=== PATIENT | male | born 1945 | race Caucasian/White ===

== ENCOUNTER 2018-04-24 10:09 | Outpatient (CLI) | payer MEDICARE ==
--- NOTE | 2018-04-24 11:40 | RAD ---
THREE VIEWS THORACIC SPINE: History: Pain. FINDINGS: AP, lateral, and swimmer's views obtained. There is extensive anterior bridging osteophytes throughou t the thoracic spine. No evidence of acute fractures or bony lesions. No evidence of anterolisthesis or retrolisthesis seen. No evidence of compression fractures seen. IMPRESSION: Extensive anterior bridging osteophytes in the thoracic spine without evidence of compression fractur es seen in the thoracic spine. POS: [facility]
== END 2018-04-24 10:10 | disposition home or self-care (01) ==
LOC: BICRAD 10:09
PROVIDERS: ATTEND Family Medicine
DX: M54.6 Pain in thoracic spine (principal); M25.78 Osteophyte, vertebrae
CPT/HCPCS: 72072

== ENCOUNTER 2018-06-05 14:42 | Outpatient (CLI) | payer MEDICARE ==
[~2018-06-05 14:42] MED LIST: Iopamidol 370 76% 100 ML VIAL ONE
--- NOTE | 2018-06-05 18:12 | CT ---
CT ABDOMEN AND PELVIS WITH CONTRAST: HISTORY: R10.9, abdominal pain, unspecified. COMPARISON: None. FINDINGS: The lung bases are clear. No pericardial effusion. The liver, spleen, pancreas, and adrenal glands are unremarkable. The aortoiliac contour is nonaneur ysmal. Mild diverticular disease of the sigmoid colon with current inflammation. The appendix is visualized and is normal. No dilated loops of large or small bowel. No retroperitoneal adenopathy. The gallbladder is unremarkable. No hydronephrosis. No abnormal renal enhancing mass. A few likely reactive right external iliac lymph nodes are present. Decompressed urinary bladder wit h wall thickening, likely prior TURP changes. Advanced degenerative facet arthrosis, lower lumbar spine. Advanced degenerative disk disease at L5- S1. IMPRESSION: 1. No acute inflammatory process in the abdomen or pelvis. 2. Mild diverticular disease of the sigmoid colon without active current inflammation. POS: [facility]
== END 2018-06-05 14:43 | disposition home or self-care (01) ==
LOC: SCSCT 14:42
PROVIDERS: ATTEND Physician Assistant
DX: R10.9 Unspecified abdominal pain (principal); K57.30 Diverticulosis of large intestine without perforation or abscess without bleeding
CPT/HCPCS: 74177

== ENCOUNTER 2018-06-22 15:49 | Outpatient (CLI) | payer MEDICARE ==
--- NOTE | 2018-06-22 17:58 | MRI ---
MRI OF THE LUMBAR SPINE 06/22/18 COMPARISON: None. HISTORY: Facet arthritis, degenerative lumbar spine disease. TECHNIQUE: Multiplanar, multisequence MR imaging lumbar spine provided without contrast. FINDINGS: The sagittal STIR imaging demonstrates no focal area of osseous marrow edema. On the basis of five lumbar type vertebral bodies, the conus medullaris terminates at the T12 level. T12-L1: There is mild bilateral facet hypertrophy. Intervertebral disc height and signal intensity is within normal limits with no central canal or neural foraminal stenosis. L1-2: Mild bilateral facet hypertrophy and hypertrophy of the ligamentum flavum. Intervertebral disc height and signal intensity appears within normal limits with no significant central canal or neural foraminal stenosis. L2-3: Mild disc space narrowing. Left lateral osteophyte formation. Mild bilateral facet hypertrophy. No significant central canal or neural foraminal stenosis. L3-4: Disc space narrowing and disc desiccation. Mild disc bulge with tiny right paracentral disc pro trusion causing a mild degree of central canal stenosis. Bilateral facet hypertrophy and hypertrophy of the ligamentum flavum, left greater than right. No significant neural foraminal stenosis seen on e ither side. L4-5: Disc space narrowing, disc desiccation and vacuum disc formation. There is anterolisthesis miguel uring 5 mm at L4-5. There is bilateral facet hypertrophy and hypertrophy of the ligamentum flavum, le ft greater than right. There is fluid within the facet joint on the left. There is mild central canal stenosis. Moderate left neural foraminal stenosis and mild right neural foraminal stenosis. L5-S1: Disc space narrowing, degenerative end plate change and disc desiccation noted with anterior o steophyte formation and mild disc bulge. No significant central canal stenosis. Bilateral facet hyper trophy. No significant neural foraminal stenosis seen on either side. The imaged retroperitoneal structures appear grossly unremarkable. IMPRESSION: Multilevel degenerative change noted within the lumbar spine, most prominent at the L4-5 level as det inna above. The degree of facet hypertrophy may signify instability and thus flexion and extension r adiographs suggested. POS: [facility]
== END 2018-06-22 15:50 | disposition home or self-care (01) ==
LOC: TBSIIMAG 15:49
PROVIDERS: ATTEND Physician Assistant
DX: M47.816 Spondylosis without myelopathy or radiculopathy, lumbar region (principal)
CPT/HCPCS: 72148; 82274

== ENCOUNTER 2018-06-27 12:05 | Outpatient (CLI) | payer MEDICARE ==
--- NOTE | 2018-06-27 13:53 | RAD ---
LUMBAR SPINE SIX VIEWS: Date: 06-27-18 History: Degenerative facet arthritis. FINDINGS: Five lumbar type vertebral bodies are present. There is facet hypertrophy bilaterally at L3-4, L4-5, and L5-S1. There is disc space narrowing and anterior osteophyte formation at L3-4 and L5-S1. The kavita tral lateral imaging demonstrates anterolisthesis of L4 on L5 measuring approximately 8 mm. With exte nsion this anterolisthesis measures approximately 8 mm and on flexion the anterolisthesis is decrease d at L4-5, difficult to measure secondary to location, estimated in the 3-4 mm range. No acute osseou s abnormality is noted. Oblique imaging demonstrates no evidence for a pars defect on either side at any level. IMPRESSION: Multilevel degenerative facet hypertrophic change within the lower lumbar spine with anterolisthesis of L4 on L5 as above. POS: [facility]
== END 2018-06-27 12:06 | disposition home or self-care (01) ==
LOC: BICRAD 12:05
PROVIDERS: ATTEND Physician Assistant
DX: M47.816 Spondylosis without myelopathy or radiculopathy, lumbar region (principal); M43.16 Spondylolisthesis, lumbar region
CPT/HCPCS: 72100

== ENCOUNTER 2018-12-20 15:51 | Outpatient (CLI) | payer MEDICARE ==
--- NOTE | 2018-12-20 16:37 | RAD ---
TWO VIEW CHEST: 12/20/18 INDICATIONS: Night sweats and shortness of breath. No comparison available. Lungs appear clear of confluent infiltrate. No evidence of vascular congestion or edema. Heart size i s normal. Mediastinum unremarkable. Degenerative spurring from the thoracic vertebrae. IMPRESSION: No acute lung process. POS: [facility]
== END 2018-12-20 15:52 | disposition home or self-care (01) ==
LOC: BICRAD 15:51
PROVIDERS: ATTEND Family Medicine
DX: R06.9 Unspecified abnormalities of breathing (principal); R61 Generalized hyperhidrosis
CPT/HCPCS: 71046

== ENCOUNTER 2019-01-15 12:56 | Outpatient (CLI) | payer MEDICARE ==
[2019-01-15] MEDS ORDERED: ISOVUE-370 76%-LOCM 1 ML ONE (16:19)
--- NOTE | 2019-01-15 17:23 | CT ---
CT NECK WITH CONTRAST: INDICATIONS: Dysphagia. FINDINGS: The imaged salivary glands are unremarkable. There are several bilateral thyroid gland hypodensities . Mild prominence of the lingual tonsils is present, with slight effacement of the vallecula. The p iriform sinuses are patent. No evidence of mass at the level of the glottis. The nasopharynx is antoni e from mass effect. No discrete oral cavity mass is visualized. There is scattered vascular calcifi cation. The imaged upper lung zones are clear. Scattered osseous degenerative change is present. IMPRESSION: 1. Mild prominence of the lingual tonsil with associated mild effacement of the vallecula. This may be on the basis of tonsillar hypertrophy. Recommend correlation with direct visualization. 2. Multiple small thyroid gland hypodensities. The findings were demonstrated on the thyroid ultras ound from 12/29/2016. Please reference separate thyroid ultrasound reports for additional details. POS: [facility]
== END 2019-01-15 12:57 | disposition home or self-care (01) ==
LOC: BICCT 12:56
PROVIDERS: ATTEND Otolaryngology Plastic Surgery within the Head & Neck
DX: I65.29 Occlusion and stenosis of unspecified carotid artery (principal); J35.8 Other chronic diseases of tonsils and adenoids; R93.89 Abnormal findings on diagnostic imaging of other specified body structures; E87.5 Hyperkalemia; D69.6 Thrombocytopenia, unspecified
CPT/HCPCS: 36415; 70491; 80048; 85007; 85027; 85060; Q9966

== ENCOUNTER 2019-09-03 21:15 | Emergency (ER) | payer MEDICARE ==
[2019-09-03 21:52] LABS: #Eosinphils 0.1 thou/uL (0.0-0.7); #Lymphocytes 1.3 thou/uL (1.20-3.40); #Monocytes 0.5 thou/uL (0.11-0.59); #Neutrophils 4.4 thou/uL (1.40-6.50); %Basophils 0.7 % (0.0-1.0); %Eosinophils 1.5 % (0.0-10.0); %Lymphocytes 20.8 % (21.0-51.0); %Monocytes 7.3 % (0.0-10.0); %Neutrophils 69.7 % (42.0-75.0); Hemoglobin 15.1 g/dL (14.0-18.0); Mean Corpuscular HGB CONC 33.7 g/dL (32.0-36.0); Mean Corpuscular Hemoglobin 30.5 pg (27.0-31.0); Mean Corpuscular Volume 90.5 fL (78.0-98.0); Mean Platelet Volume 8.5 fL (7.4-10.4); Platelet Count 153 thou/uL (130-400); RBC Distribution Width 11.8 % (11.5-14.5); Red Blood Cell (RBC) Count 4.95 mill/uL (4.70-6.10); White Blood Cell (WBC) Count 6.3 thou/uL (4.8-10.8)
[2019-09-03 22:10] LABS: ALT (SGPT) 29 U/L (8-55); AST (SGOT) 34 U/L (5-34); Albumin 4.2 g/dL (3.4-4.8); Alkaline Phosphatase 85 U/L (40-110); Anion Gap 7 mmol/L (10-20); BUN (Urea Nitrogen) 16 mg/dL (8.4-25.7); Bilirubin, Total 0.8 mg/dL (0.2-1.2); Calc. Creatinine Clearance 0 mL/min (70-130); Calcium 9.4 mg/dL (7.8-10.44); Carbon Dioxide 33 mmol/L (23-31); Chloride 101 mmol/L (98-107); Estimated GFR-MDRD 69; Globulin 2.6 g/dL (2.4-3.5); Glucose 113 mg/dL (83-110); Potassium 4.3 mmol/L (3.5-5.1); Protein, Total 6.8 g/dL (5.8-8.1); Sodium 137 mmol/L (136-145)
[2019-09-03 22:10] LABS: Bilirubin Negative (Negative); Blood, Urine Negative (Negative); Clarity Clear (Clear); Glucose, Urine (Dipstick) Normal (Negative); Leukocyte Negative Leu/uL (Negative); Nitrite Negative (Negative); Protein, Urine (Dipstick) Negative (Neg-Trace); Urobilinogen Normal mg/dL (Less than 2)
[2019-09-04] MEDS ORDERED: Ketorolac Tromethamine 30 MG/ML VIAL ONE (01:44)
--- NOTE | 2019-09-04 07:55 | CT ---
PRELIMINARY REPORT/[facility]/EMERGENCY AFTER HOURS PROCEDURE: History: Right groin pain radiating to testicle. CT abdomen pelvis with 100 cc Isovue-370 IV contrast. Comparison: None. Findings: The lung bases are clear. The gallbladder is mildly contracted. The liver, pancreas, spleen and adrenal glands are unremarkabl e. The kidneys are normal in appearance. No radiopaque renal or ureteral stones. No hydronephrosis. The stomach and small bowel are unremarkable. No small bowel obstruction. The appendix is normal. Large amount of colonic stool throughout. Scattered distal colonic diverticula. No free fluid or fr ee air. The bladder is incompletely distended. Trace right scrotal hydrocele. Atherosclerotic aorta without dissection or aneurysm. Degenerative changes of the spine and SI joints. Impression: 1. No radiopaque renal or ureteral stones. No hydronephrosis. 2. Trace right scrotal hydrocele. Further assessment could be obtained with scrotal ultrasound as w arranted. 3. Large amount of colonic stool throughout. Correlate for constipation. 4. Distal colonic diverticulosis without diverticulitis. ELECTRONICALLY SIGNED BY: Niranjan Heard MD Sep 04, 2019 2:42:22 AM CDT This report is intended for review by the ordering physician only, in accordance of law. If you recei ve this report in error, please call [facility] at [phone]. FINAL REPORT EMERGEC[facility] AFTER HOURS CT ABDOMEN AND PELVIS WITH CONTRAST: FINDINGS/IMPRESSION: I agree with the findings and impression given in the preliminary report per [facility] physici an. Diverticulosis without evidence of acute diverticulitis.
[2019-09-04] MEDS ORDERED: Iopamidol 370 76% 100 ML VIAL ONE ×2 (14:32)
== END 2019-09-04 03:33 | disposition home or self-care (01) ==
LOC: ERS 21:15
DX: S39.011A Strain of muscle, fascia and tendon of abdomen, initial encounter (principal); E10.9 Type 1 diabetes mellitus without complications; E78.5 Hyperlipidemia, unspecified; I10 Essential (primary) hypertension; Z79.4 Long term (current) use of insulin; Z79.899 Other long term (current) drug therapy; X58.XXXA Exposure to other specified factors, initial encounter
CPT/HCPCS: 36415; 74177; 80053; 81003; 85025; 96361; 96374; J1885; Q9967

== ENCOUNTER 2020-03-29 05:14 | Emergency (ER) | payer MEDICARE | END 2020-03-29 06:10 | disposition home or self-care (01) | LOC: ERS 05:14 | DX: I10 Essential (primary) hypertension (principal); E10.9 Type 1 diabetes mellitus without complications; E78.5 Hyperlipidemia, unspecified | CPT/HCPCS: 93005 ==

== ENCOUNTER 2020-04-28 22:25 | Emergency (ER) | payer MEDICARE ==
[2020-04-29] MEDS ORDERED: Acetaminophen 500 MG TAB ONE (00:27)
[2020-04-29] MEDS ORDERED: Morphine 4 MG/ML VIAL ONE (00:33)
== END 2020-04-29 00:56 | disposition home or self-care (01) ==
LOC: ERS 22:25
DX: M54.5 Low back pain (principal); E11.9 Type 2 diabetes mellitus without complications; E78.5 Hyperlipidemia, unspecified; Z79.4 Long term (current) use of insulin; Z79.899 Other long term (current) drug therapy
CPT/HCPCS: 96372; 99283; J2270

== ENCOUNTER 2020-05-07 12:31 | Outpatient (CLI) | payer MEDICARE ==
--- NOTE | 2020-05-07 13:43 | MRI ---
MRI lumbar spine noncontrast: HISTORY: Low back pain. Right hip pain x3 weeks. COMPARISON: 06/22/2018 FINDINGS: Heterogeneous marrow signal intensity of the lumbar vertebral compatible with stable senescent change . Redemonstration of type I and type II Modic changes at the T11-T12 level, L4-L5 and L5-S1 levels. Vacuum disc phenomenon at L4-L5. Disc desiccation at L5-S1. There is bilateral facet hypertrophy at L 4-L5 and to lesser extent at L5-S1. There is no spondylolysis. Redemonstration of grade 1 anterolisthesis, currently measuring 0.4 cm. Appropriate signal intensity of the visualized paraspinal muscles and solid organs. Left parapelvic cysts are noted. Conus medullaris terminates at the mid T12 level. T12-L1:Adequate disc hydration. No posterior disc abnormality. No significant central canal stenosis or foraminal narrowing. L1-L2: Adequate disc hydration. Broad-based disc bulge flattens the ventral thecal sac. There is mild ligamentum flavum thickening and facet hypertrophy. Mild central canal stenosis. Mild bilateral neural foraminal narrowing. L2-L3:Adequate disc hydration. Broad-based disc bulge, ligamentum flavum thickening and facet hypertr ophy result in mild central canal stenosis. Small amount of fluid in both facet joints. Mild bilateral neural foraminal narrowing. L3-L4:Disc desiccation with mild loss of disc space height. There is a broad-based disc bulge with a right subarticular disc herniation. Narrowing of the right subarticular zone with displacement and partial obscuration of traversing right L4 nerve root. There is mild narrowing of the left subarticul ar zone. Contact upon the traversing left L4 nerve root without significant obscuration. Mild bilateral neural foraminal narrowing. L4-L5:Vacuum disc phenomenon. Broad-based disc bulge, ligamentum flavum thickening and facet hypertro phy. Mild to moderate central canal stenosis. There is fluid in both facet joints. Right neural foramen is mildly narrowed. Moderate left neural foraminal narrowing. L5-S1:Disc desiccation with moderate loss of disc space height. Stable fluid signal intensity within the disc. Broad-based disc bulge without significant mass effect upon the thecal sac. Bilateral facet hypertrophy. Mild to moderate bilateral neural foraminal narrowing. IMPRESSION: Multilevel degenerative changes of the lumbar spine as described above. Transcribed Date/Time: 05/07/2020 1:48 PM
== END 2020-05-07 12:32 | disposition home or self-care (01) ==
LOC: TBSIIMAG 12:31
PROVIDERS: ATTEND Surgery
DX: M54.5 Low back pain (principal); M47.816 Spondylosis without myelopathy or radiculopathy, lumbar region
CPT/HCPCS: 72148

== ENCOUNTER 2021-12-25 13:58 | Outpatient (CLI) | payer MEDICARE | END 2021-12-25 13:59 | disposition home or self-care (01) | LOC: BICRAD 13:58 | PROVIDERS: ATTEND Nurse Practitioner Family | DX: U07.1 COVID-19 (principal); R05.9 Cough, unspecified; J98.4 Other disorders of lung | CPT/HCPCS: 71046 ==

== ENCOUNTER 2021-12-29 00:49 | Emergency (ER) | payer MEDICARE ==
[2021-12-29 01:39] LABS: #Basophils 0.1 thou/uL (0.0-0.2); #Eosinphils 0.1 thou/uL (0.0-0.7); #Lymphocytes 1.4 thou/uL (1.20-3.40); #Monocytes 0.6 thou/uL (0.11-0.59); #Neutrophils 3.1 thou/uL (1.40-6.50); %Basophils 2.4 % (0.0-1.0); %Eosinophils 2.2 % (0.0-10.0); %Lymphocytes 26.2 % (21.0-51.0); %Monocytes 11.8 % (0.0-10.0); %Neutrophils 57.4 % (42.0-75.0); Mean Corpuscular HGB CONC 33.3 g/dL (32.0-36.0); Mean Corpuscular Hemoglobin 30.8 pg (27.0-31.0); Mean Corpuscular Volume 92.4 fL (78.0-98.0); Mean Platelet Volume 8.3 fL (7.4-10.4); Platelet Count 144 thou/uL (130-400); RBC Distribution Width 11.9 % (11.5-14.5); Red Blood Cell (RBC) Count 4.86 mill/uL (4.70-6.10); White Blood Cell (WBC) Count 5.4 thou/uL (4.8-10.8)
[2021-12-29 02:13] LABS: ALT (SGPT) 24 U/L (8-55); AST (SGOT) 29 U/L (5-34); Alkaline Phosphatase 94 U/L (40-110); Anion Gap 14 mmol/L (10-20); BUN (Urea Nitrogen) 21 mg/dL (8.4-25.7); Bilirubin, Total 0.6 mg/dL (0.2-1.2); Calc. Creatinine Clearance 0 mL/min (70-130); Calcium 9.5 mg/dL (7.8-10.44); Carbon Dioxide 24 mmol/L (23-31); Chloride 102 mmol/L (98-107); Estimated GFR 71; Globulin 2.6 g/dL (2.4-3.5); Glucose 132 mg/dL (83-110); Potassium 4.3 mmol/L (3.5-5.1); Protein, Total 6.6 g/dL (5.8-8.1); Sodium 136 mmol/L (136-145)
== END 2021-12-29 03:36 | disposition home or self-care (01) ==
LOC: ERS 00:49
DX: J18.9 Pneumonia, unspecified organism (principal); E10.9 Type 1 diabetes mellitus without complications; E78.5 Hyperlipidemia, unspecified; Z79.899 Other long term (current) drug therapy; Z79.4 Long term (current) use of insulin
CPT/HCPCS: 36415; 71045; 80053; 84484; 85025; 93005

== ENCOUNTER 2022-01-05 14:32 | Outpatient (CLI) | payer MEDICARE | END 2022-01-05 14:33 | disposition home or self-care (01) | LOC: BICRAD 14:32 | PROVIDERS: ATTEND Nurse Practitioner Family | DX: R91.8 Other nonspecific abnormal finding of lung field (principal) | CPT/HCPCS: 71046 ==

== ENCOUNTER 2023-02-09 04:20 | Emergency (ER) | payer MEDICARE | END 2023-02-09 06:00 | disposition home or self-care (01) | LOC: ERS 04:20 | DX: R09.81 Nasal congestion (principal); G91.2 (Idiopathic) normal pressure hydrocephalus; E11.9 Type 2 diabetes mellitus without complications; E78.5 Hyperlipidemia, unspecified | CPT/HCPCS: 93005 ==

== ENCOUNTER 2024-05-24 06:27 | Emergency (ER) | payer MEDICARE ==
[2024-05-24] MEDS ORDERED: Lidocaine 4% Patch ONE (06:59)
[2024-05-24 08:10] LABS: Troponin I Less than 0.010 ng/mL (< 0.028)
[2024-05-24 08:23] LABS: #Basophils Less than 0.03 10x3/uL (0.0-0.2); %Basophils 0.4 % (0.0-1.0); %Eosinophils 3.2 % (0.0-10.0); %Monocytes 10.3 % (0.0-10.0); %Neutrophils 66.9 % (42.0-75.0); Hematocrit 43.7 % (42.0-52.0); Hemoglobin 14.4 g/dL (14.0-18.0); Mean Corpuscular Hemoglobin 29.9 pg (27.0-31.0); Mean Corpuscular Volume 90.9 fL (78.0-98.0); Mean Platelet Volume 10.5 fL (7.4-10.4); Platelet Count 173 10x3/uL (130-400); RBC Distribution Width 12.7 % (11.5-14.5); Red Blood Cell (RBC) Count 4.81 mill/uL (4.70-6.10)
[2024-05-24 08:42] LABS: ALT (SGPT) 47 U/L (8-55); AST (SGOT) 54 U/L (5-34); Albumin 3.6 g/dL (3.4-4.8); Alkaline Phosphatase 82 U/L (40-110); Anion Gap 11 mmol/L (10-20); BUN (Urea Nitrogen) 25 mg/dL (8.4-25.7); Bilirubin, Total 0.7 mg/dL (0.2-1.2); Calc. Creatinine Clearance 0 mL/min (70-130); Calcium 8.6 mg/dL (7.8-10.44); Carbon Dioxide 27 mmol/L (23-31); Chloride 104 mmol/L (98-107); Estimated GFR 71; Globulin 2.8 g/dL (2.4-3.5); Glucose 236 mg/dL (83-110); Potassium 4.3 mmol/L (3.5-5.1); Protein, Total 6.4 g/dL (5.8-8.1); Sodium 138 mmol/L (136-145)
== END 2024-05-24 08:30 | disposition home or self-care (01) ==
LOC: ERS 06:27
DX: S09.90XA Unspecified injury of head, initial encounter (principal); M54.50 Low back pain, unspecified; M25.512 Pain in left shoulder; W19.XXXA Unspecified fall, initial encounter
CPT/HCPCS: 70450; 80053; 84484; 85025; 93005

== ENCOUNTER 2025-06-17 13:58 | Outpatient (CLI) | payer MEDICARE | END 2025-06-17 13:59 | disposition home or self-care (01) | LOC: BICRAD 13:58 | PROVIDERS: ATTEND Podiatrist | DX: M79.672 Pain in left foot (principal); L90.9 Atrophic disorder of skin, unspecified ==